=== PATIENT | female | born 1955 | race African-American/Black ===

== ENCOUNTER 2022-05-01 09:31 | Inpatient (IN) ==
[2022-05-01] MEDS ORDERED: TUSSIONEX PENNKINETIC SUSP PO PRN (09:35)
[2022-05-01 12:09] LABS: BASOPHILS # (AUTO) 0.1 X10^3/uL (0.0-0.1); BASOPHILS % (AUTO) 0.8 % (0.2-1.0); EOSINOPHILS # (AUTO) 0.4 x10^3/uL (0.0-0.2); EOSINOPHILS % (AUTO) 4.1 % (0.9-2.9); HEMATOCRIT 45.6 % (36.0-47.0); HEMOGLOBIN 15.1 g/dL (12.0-16.0); LYMPHOCYTES # (AUTO) 2.6 X10^3/uL (1.3-2.9); LYMPHOCYTES % (AUTO) 30.2 % (21.0-51.0); MEAN CORPUSCULAR HEMOGLOBIN 29.1 pg (27.0-34.0); MEAN CORPUSCULAR HGB CONC 33.1 g/dL (33.0-35.0); MEAN CORPUSCULAR VOLUME 88.1 fL (80.0-100.0); MEAN PLATELET VOLUME 7.2 fL (7.4-11.0); MONOCYTES # (AUTO) 0.9 x10^3/uL (0.3-0.8); MONOCYTES % (AUTO) 10.7 % (0.0-13.0); NEUTROPHILS # (AUTO) 4.6 x10^3/uL (2.2-4.8); NEUTROPHILS % (AUTO) 54.2 % (42.0-75.0); RED BLOOD COUNT 5.17 X10^6/uL (3.5-5.4); WHITE BLOOD COUNT 8.6 X10^3/uL (3.6-10.0)
[2022-05-01 12:20] LABS: ALANINE AMINOTRANSFERASE 12 Units/L (12-78); ALBUMIN 2.8 g/dL (3.4-5.0); ALKALINE PHOSPHATASE 87 Units/L (46-116); ASPARTATE AMINO TRANSFERASE 19 Units/L (15-37); BLOOD UREA NITROGEN 17 mg/dL (7-18); CALCIUM 8.2 mg/dL (8.5-10.1); CARBON DIOXIDE 32.6 mmol/L (21-32); CHLORIDE 105 mmol/L (98-107); COR CA(FOR HYPOALB) 9.2 mg/dL (8.5-10.1); CREATININE 0.92 mg/dL (0.55-1.02); SODIUM 143 mmol/L (136-145); TOTAL PROTEIN 7.6 g/dL (6.4-8.2); eGFR NON BLACK RACES > 60 (>60)
[2022-05-01] MEDS ORDERED: NS 1/2 1,000 ML IV 1,000 ML IV ONE (12:41)
[2022-05-01] MEDS: ROBITUSSIN DM PO SCH ×4 (12:48→21:53)
[2022-05-01] MEDS: NS 1/2 1,000 ML IV 1,000 ML IV SCH (12:48)
[2022-05-01 12:57] VITALS: BMI 36.9
[2022-05-01] MEDS ORDERED: SOLU-Medrol 125 MG VIAL IVP ONE (13:22)
[2022-05-01] MEDS: DUONEB 0.5 MG/3 MG (3 mL) NEB SCH ×3 (13:30→21:00)
[2022-05-01] MEDS: TAMIFLU PO SCH ×2 (13:48→21:51)
[2022-05-01] MEDS: LEVAQUIN PREMIX IV 750 MG 750 MG/150 ML BAG IV SCH (13:48)
[2022-05-01] MEDS: SOLU-Medrol 40 MG VIAL IVP SCH ×2 (13:51→21:52)
[2022-05-01] MEDS: PULMICORT NEB TX 0.5 MG NEB SCH (21:00)
[2022-05-01] MEDS ORDERED: PATIENT'S HOME MEDICATION (Oxycodone-Acetaminophen 10-325 mg tablet) PO PRN (21:20)
[2022-05-01] MEDS ORDERED: VOLTAREN 1 % GEL MULTI DOSE TUBE TOP PRN (21:20)
[2022-05-01] MEDS ORDERED: PATIENT'S HOME MEDICATION (Meloxicam 7.5 mg tablet) PO SCH (21:30)
[2022-05-01] MEDS: ZANAFLEX PO SCH (21:49)
[2022-05-01] MEDS: NEURONTIN CAP 100 MG PO SCH (21:49)
[2022-05-01] MEDS: ZESTORETIC 10/ 12.5MG PO SCH (21:51)
[2022-05-01] MEDS: PEPCID TAB 20 MG PO SCH (22:47)
[2022-05-01] MEDS ORDERED: K-DUR TAB 20 MEQ PO PRN (23:41)
[2022-05-01] MEDS ORDERED: KLOR-CON PO PRN (23:41)
[2022-05-01] MEDS ORDERED: K-RIDER 10 MEQ/NS 100 ML 10 MEQ/100 ML BAG IV PRN (23:41)
[2022-05-01] MEDS ORDERED: MICRO K EXTEN CAP 10 MEQ PO PRN (23:41)
[2022-05-01] MEDS ORDERED: MAGNESIUM SULFATE 1 GRAM/100 mL PREMIX 1 G/100 ML BAG IV PRN (23:41)
[2022-05-01] MEDS ORDERED: POTASSIUM CHLORIDE LIQ 20 MEQ UDC PO PRN (23:41)
[2022-05-01] MEDS ORDERED: POTASSIUM CHL 60 MEQ/NS 0.45% 500 ML IV PRN (23:41)
[2022-05-01] MEDS ORDERED: POTASSIUM CHL 40 MEQ/NS 0.45% 500 ML IV PRN (23:41)
[2022-05-02] MEDS: NS 1/2 1,000 ML IV 1,000 ML IV SCH ×3 (00:01→21:20)
[2022-05-02] MEDS ORDERED: NS 1/2 1,000 ML IV 1,000 ML IV ONE ×2 (04:26→21:11)
[2022-05-02] MEDS: NEURONTIN CAP 100 MG PO SCH ×3 (05:34→21:19)
[2022-05-02] MEDS: SOLU-Medrol 40 MG VIAL IVP SCH ×4 (05:35→21:20)
[2022-05-02 06:48] LABS: BASOPHILS % (AUTO) 0.1 % (0.2-1.0); HEMATOCRIT 43.2 % (36.0-47.0); HEMOGLOBIN 14.3 g/dL (12.0-16.0); LYMPHOCYTES # (AUTO) 1.2 X10^3/uL (1.3-2.9); LYMPHOCYTES % (AUTO) 11.8 % (21.0-51.0); MEAN CORPUSCULAR HEMOGLOBIN 29.1 pg (27.0-34.0); MEAN PLATELET VOLUME 7.5 fL (7.4-11.0); MONOCYTES # (AUTO) 0.3 x10^3/uL (0.3-0.8); MONOCYTES % (AUTO) 2.5 % (0.0-13.0); NEUTROPHILS # (AUTO) 8.9 x10^3/uL (2.2-4.8); NEUTROPHILS % (AUTO) 85.6 % (42.0-75.0); RED BLOOD COUNT 4.91 X10^6/uL (3.5-5.4); RED CELL DISTRIBUTION WIDTH 14.7 % (11.6-16.5); WHITE BLOOD COUNT 10.4 X10^3/uL (3.6-10.0)
[2022-05-02 07:07] LABS: ALANINE AMINOTRANSFERASE 10 Units/L (12-78); ALBUMIN 2.6 g/dL (3.4-5.0); ALKALINE PHOSPHATASE 82 Units/L (46-116); ASPARTATE AMINO TRANSFERASE 17 Units/L (15-37); BLOOD UREA NITROGEN 12 mg/dL (7-18); CALCIUM 8.1 mg/dL (8.5-10.1); CARBON DIOXIDE 26.7 mmol/L (21-32); CHLORIDE 105 mmol/L (98-107); COR CA(FOR HYPOALB) 9.2 mg/dL (8.5-10.1); COR NA(FOR HYPERGLY) 140 mmol/L (136-145); CREATININE 0.82 mg/dL (0.55-1.02); MAGNESIUM 2.2 mg/dL (2.0-2.9); SODIUM 138 mmol/L (136-145); TOTAL PROTEIN 7.2 g/dL (6.4-8.2); eGFR NON BLACK RACES > 60 (>60)
--- NOTE | 2022-05-02 07:53 | RAD ---
HISTORYPNEUMONIA Relevant Clinical InformationSTUDYCHEST, PA/LAT ADULTCOMPARISONNone availableFINDINGSThe trachea is midline. There is mild cardiomegaly. There is no evidence of pleural effusion or pneumothorax. There are small ground-glass radiopacities and interstitial changes in the left base projecting in the retro cardial region that it could correspond with viral pneumonia. Osseus structures are unremarkableIMPRESSIONGround-glass and interstitial changes in the left base suspicious for viral pneumonia.Electronically signed by: Dinora Barragan (May 02, 2022 07:51:50)
[2022-05-02] MEDS ORDERED: PERCOCET TAB 5/325 MG PO PRN (08:00)
[2022-05-02] MEDS: DUONEB 0.5 MG/3 MG (3 mL) NEB SCH ×4 (08:25→21:00)
[2022-05-02] MEDS: PULMICORT NEB TX 0.5 MG NEB SCH ×2 (08:25→21:00)
--- NOTE | 2022-05-02 09:19 | RAD ---
HISTORYSOBSTUDYCHEST, 1 [id number]/15/2022FINDINGSThe lungs are clear. No pneumothorax or significant effusion.Heart size magnified.Degenerative changes are present in the shoulders, right side more than left.IMPRESSION1. No significant abnormalityElectronically signed by: Jomar Weiss (May 02, 2022 09:17:24)
[2022-05-02] MEDS: ROBITUSSIN DM PO SCH ×4 (09:37→20:46)
[2022-05-02] MEDS: ZESTORETIC 10/ 12.5MG PO SCH (09:37)
[2022-05-02] MEDS: LEVAQUIN PREMIX IV 750 MG 750 MG/150 ML BAG IV SCH (09:37)
[2022-05-02] MEDS: PEPCID TAB 20 MG PO SCH ×2 (09:37→20:48)
[2022-05-02] MEDS: TAMIFLU PO SCH ×2 (09:37→20:48)
[2022-05-02] MEDS: MOBIC TAB 15 MG PO SCH ×2 (09:38→20:49)
[2022-05-02] MEDS: ZANAFLEX PO SCH (20:48)
[2022-05-02] MEDS: LIPITOR TAB 20 MG PO SCH (20:49)
[2022-05-03] MEDS: NS 1/2 1,000 ML IV 1,000 ML IV SCH ×3 (03:49→17:05)
[2022-05-03] MEDS: NEURONTIN CAP 100 MG PO SCH ×4 (05:20→21:10)
[2022-05-03] MEDS: SOLU-Medrol 40 MG VIAL IVP SCH ×3 (05:21→21:12)
[2022-05-03 06:52] LABS: BASOPHILS % (AUTO) 0.2 % (0.2-1.0); HEMATOCRIT 42.2 % (36.0-47.0); LYMPHOCYTES # (AUTO) 1.4 X10^3/uL (1.3-2.9); LYMPHOCYTES % (AUTO) 9.9 % (21.0-51.0); MEAN CORPUSCULAR HGB CONC 33.1 g/dL (33.0-35.0); MEAN CORPUSCULAR VOLUME 87.4 fL (80.0-100.0); MEAN PLATELET VOLUME 7.5 fL (7.4-11.0); MONOCYTES # (AUTO) 0.7 x10^3/uL (0.3-0.8); MONOCYTES % (AUTO) 5.1 % (0.0-13.0); NEUTROPHILS % (AUTO) 84.8 % (42.0-75.0); RED BLOOD COUNT 4.83 X10^6/uL (3.5-5.4); WHITE BLOOD COUNT 14.1 X10^3/uL (3.6-10.0)
[2022-05-03 07:03] LABS: ALANINE AMINOTRANSFERASE 8 Units/L (12-78); ALBUMIN 2.5 g/dL (3.4-5.0); ALKALINE PHOSPHATASE 75 Units/L (46-116); ASPARTATE AMINO TRANSFERASE 11 Units/L (15-37); BLOOD UREA NITROGEN 16 mg/dL (7-18); CALCIUM 7.8 mg/dL (8.5-10.1); CARBON DIOXIDE 30.9 mmol/L (21-32); CHLORIDE 102 mmol/L (98-107); COR NA(FOR HYPERGLY) 140 mmol/L (136-145); CREATININE 0.96 mg/dL (0.55-1.02); SODIUM 137 mmol/L (136-145); TOTAL PROTEIN 6.8 g/dL (6.4-8.2); eGFR NON BLACK RACES > 60 (>60)
[2022-05-03] MEDS: LEVAQUIN PREMIX IV 750 MG 750 MG/150 ML BAG IV SCH (08:11)
[2022-05-03] MEDS: ZESTORETIC 10/ 12.5MG PO SCH (08:13)
[2022-05-03] MEDS: TAMIFLU PO SCH ×2 (08:13→21:10)
[2022-05-03] MEDS: ROBITUSSIN DM PO SCH ×4 (08:13→21:12)
[2022-05-03] MEDS: PEPCID TAB 20 MG PO SCH ×2 (08:13→21:10)
[2022-05-03] MEDS: MOBIC TAB 15 MG PO SCH ×2 (08:13→21:10)
[2022-05-03] MEDS: DUONEB 0.5 MG/3 MG (3 mL) NEB SCH ×4 (08:41→21:00)
[2022-05-03] MEDS: PULMICORT NEB TX 0.5 MG NEB SCH ×2 (08:42→21:00)
--- NOTE | 2022-05-03 09:27 | RAD ---
HISTORYSOBSTUDYAP chestCOMPARISONDecember 2021FINDINGSStable heart size with no evidence for developing pulmonary, hilar or pleural abnormality. There is no evidence for localized pneumonia or pulmonary edema.IMPRESSIONNo change or acute findings demonstrated.Electronically signed by: CHIQUI EUBANKS (May 03, 2022 09:26:02)
--- NOTE | 2022-05-03 09:41 | DR.UPDATE ---
H&P Update Prescription drug monitoring program results: PDMP reviewed and no concerns identified H&P Reviewed: Yes Any changes to H&P?: Yes Changes noted:: IS A 66 YEAR OLD PATIENT OF OURS. SHE PRESENTED TO THE HOSPITAL A DIRECT ADMISSION, OBSERVATION STATUS, FOR TREATMENT OF INFLUENZA A AND BRONCHOPNEUMONIA. PATIENT REPORTEDLY TESTED POSITIVE FOR INFLUENZA A ON 04/29/22. SHE WAS GIVEN TAMIFLU 75MG PO BID. PATIENT REPORTS THAT HER SYMTPOMS OF COUGH, SHORTNESS OF BREATH, AND WHEEZING WORSENED DESPITE TAKING THE TAMIFLU. ON ADMISSION TO THE HOSPITAL, VITALS WERE 99.0-76-20-92%-121/63. LABS WERE OBTAINED. WBC 8.6, RBC 5.17, HGB 15.1, HCT 45.6, PLT COUNT 266, SODIUM 143, POTASSIUM 3.5, CHLORIDE 105, CARBON DIOXIDE 32.6, BUN 17, CREATININE 0.92, GLUCOSE 97, CALCIUM 8.2, AST 19, ALT 12, ALK PHOS 87, TOTAL PROTEIN 7.6, ALBUMIN 2.8. RESPIRATORY VIRAL PANEL, BLOOD CULTURES, AND SPUTUM CULTURES WERE SET UP. A CHEST XRAY WAS OBTAINED AND REVEALED: Ground-glass and interstitial changes in the left base suspicious for viral pneumonia. SHE WAS STARTED ON NORMAL SALINE AT 75 ML/HR, LEVAQUIN 750MG IV DAILY, TAMIFLU 75MG PO BID, DUONEBS QID, PULMICORT NEBS BID, TUSSIONEX 5ML PO Q12H PRN, ROBITUSSIN DM 10ML PO QID, THE POTASSIUM AND MAGNESIUM PROTOCOLS, AND HER HOME MEDICATIONS WERE RESUMED. OTHERWISE, WE WILL FOLLOW-UP WITH AM LABS AND CONTINUE TO MONITOR. TIME SPENT ON CLINICAL ASSESSMENT, REVIWING LABS AND IMAGING, DECISION MAKING, AND DOCUMENTATION GREATER THAN 75 MINUTES. Patient was examined?: Yes
--- NOTE | 2022-05-03 10:15 | PCM.PROG ---
Progress Note - Progress Note for Day of Date of Exam: 05/03/22 - Subjective Subjective: IS CURRENTLY OBSERVATION STATUS FOR TREATMENT OF BRONCHOPNEUMONIA AND INFLUENZA A. TODAY, SHE IS ALERT AND ORIENTED, LYING IN BED ON MORNING ROUNDS. SHE CONTINUES WITH COMPLAINTS OF A NON-PRODUCTIVE COUGH, SHORTNESS OF BREATH, AND WHEEZING. ON EXAMINATION, HEART IS REGULAR IN RATE AND RHYTHM. BILATERAL LUNGS ARE NOTED WITH SCATTERED WHEEZING THROUGHOUT. ABDOMEN IS ROUND, SOFT, AND NON-TENDER WITH NORMAL BOWEL SOUNDS NOTED IN ALL QUADRANTS. NO UPPER OR LOWER EXTREMITY EDEMA NOTED. HER VITALS THIS MORNING ARE: 98.1-79-20-96%-122/71. LABS WERE OBTAINED. WBC 14.1, RBC 4.83, HGB 14.0, HCT 42.2, PLT COUNT 247, SODIUM 137, POTASSIUM 4.0, CHLORIDE 102, CARBON DIOXIDE 30.9, BUN 16, CREATININE 0.96, GLUCOSE 220, CALCIUM 7.8, TOTAL BILI 0.10, AST 11, ALT 8, ALK PHOS 75, TOTAL PROTEIN 6.8, ALBUMIN 2.5. RESPIRATORY VIRAL PANEL IS PENDING. BLOOD CULTURES ARE ALSO PENDING. CHEST XRAY OBTAINED THIS MORNING AND REVEALED: Stable heart size with no evidence for developing pulmonary, hilar or pleural abnormality. There is no evidence for localized pneumonia or pulmonary edema. SHE IS CURRENTLY RECEIVING NORMAL SALINE AT 75 ML/HR, LEVAQUIN 750MG IV DAILY, TAMIFLU 75MG PO BID, DUONEBS QID, PULMICORT NEBS BID, TUSSIONEX 5ML PO Q12H PRN, ROBITUSSIN DM 10ML PO QID, THE POTASSIUM AND MAG NESIUM PROTOCOLS, AND HER HOME MEDICATIONS WERE RESUMED. WE WILL CONTINUE WITH CURRENT PLAN OF CARE TODAY. OTHERWISE, WE PLAN TO FOLLOW-UP WITH AM LABS AND CONTINUE TO MONITOR. TIME SPENT ON CLINICAL ASSESSMENT, REVIWING LABS AND IMAGING, DECISION MAKING, AND DOCUMENTATION GREATER THAN 45 MINUTES. - Past Medical Family Social History Past Med/Fam/Surg Hx: No changes since H&P Allergies: Allergies azithromycin [From Zithromax] Allergy (Verified 05/01/22 13:21) ceftriaxone [From Rocephin] Allergy (Verified 05/01/22 12:01) shrimp Allergy (Verified 05/01/22 12:01) - Review of Systems ROS: No change since H&P - Vital Signs and I&O's Vital Signs: Temperature 98.1 F Pulse Rate [Left Radial] 79 Pulse Rate 82 Respiratory Rate 20 Blood Pressure [Left Arm] 122/71 O2 Sat by Pulse Oximetry 95 Intake and Output: Intake & Output 04/30/22 05/01/22 05/02/22 05/03/22 11:59 11:59 11:59 11:59 Intake Total 2028 3530 / 3530 Balance 2028 3530 / 3530 - Physical Exam Oriented: Normal Eyes: Normal Ear: Normal Nose: Normal Throat: Normal Respiratory: Generalized, Wheezes Cardiovascular: Normal : Normal Auscultation: Bowel Sounds: Normal Palpation: Normal Tenderness: Normal Skin: Normal Musculoskeletal: Normal Psychiatric: Normal Mood Description: Calm Affect: Normal Speech Pattern: Clear, Appropriate - Laboratory and Diagnostics Result Diagrams: 05/03/22 05:54 05/03/22 05:54 Labs: 05/01/22 13:16 Sputum - Expectorated Sputum Sputum Culture - Final 05/01/22 13:16 Sputum - Expectorated Sputum - Final Laboratory WBC 14.1 X10^3/uL (3.6-10.0) H 05/03/22 05:54 RBC 4.83 X10^6/uL (3.5-5.4) 05/03/22 05:54 Hgb 14.0 g/dL (12.0-16.0) 05/03/22 05:54 Hct 42.2 % (36.0-47.0) 05/03/22 05:54 MCV 87.4 fL (80.0-100.0) 05/03/22 05:54 MCH 29.0 pg (27.0-34.0) 05/03/22 05:54 MCHC 33.1 g/dL (33.0-35.0) 05/03/22 05:54 RDW 15.0 % (11.6-16.5) 05/03/22 05:54 Plt Count 247 X10^3/uL (150.0-450.0) 05/03/22 05:54 MPV 7.5 fL (7.4-11.0) 05/03/22 05:54 Neut % (Auto) 84.8 % (42.0-75.0) H 05/03/22 05:54 Lymph % (Auto) 9.9 % (21.0-51.0) L 05/03/22 05:54 [place] % (Auto) 5.1 % (0.0-13.0) 05/03/22 05:54 Eos % (Auto) 0.0 % (0.9-2.9) L 05/03/22 05:54 Baso % (Auto) 0.2 % (0.2-1.0) 05/03/22 05:54 Neut # (Auto) 12.0 x10^3/uL (2.2-4.8) H 05/03/22 05:54 Lymph # (Auto) 1.4 X10^3/uL (1.3-2.9) 05/03/22 05:54 [place] # (Auto) 0.7 x10^3/uL (0.3-0.8) 05/03/22 05:54 Eos # (Auto) 0.0 x10^3/uL (0.0-0.2) 05/03/22 05:54 Baso # (Auto) 0.0 X10^3/uL (0.0-0.1) 05/03/22 05:54 Absolute Nucleated RBC 0.0 /100WBC 05/03/22 05:54 Sodium 137 mmol/L (136-145) 05/03/22 05:54 Corrected Sodium 140 mmol/L (136-145) 05/03/22 05:54 Potassium 4.0 mmol/L (3.5-5.1) 05/03/22 05:54 Chloride 102 mmol/L (98-107) 05/03/22 05:54 Carbon Dioxide 30.9 mmol/L (21-32) 05/03/22 05:54 BUN 16 mg/dL (7-18) 05/03/22 05:54 Creatinine 0.96 mg/dL (0.55-1.02) 05/03/22 05:54 Est GFR (MDRD) Af Amer > 60 (>60) 05/03/22 05:54 Est GFR (MDRD) Non-Af > 60 (>60) 05/03/22 05:54 Glucose 220 mg/dL (65-99) H 05/03/22 05:54 Calcium 7.8 mg/dL (8.5-10.1) L 05/03/22 05:54 Corrected Calcium 9.0 mg/dL (8.5-10.1) 05/03/22 05:54 Magnesium 2.2 mg/dL (2.0-2.9) 05/02/22 06:00 Total Bilirubin 0.10 mg/dL (0.2-1.0) L 05/03/22 05:54 AST 11 Units/L (15-37) L 05/03/22 05:54 ALT 8 Units/L (12-78) L 05/03/22 05:54 Alkaline Phosphatase 75 Units/L (46-116) 05/03/22 05:54 Total Protein 6.8 g/dL (6.4-8.2) 05/03/22 05:54 Albumin 2.5 g/dL (3.4-5.0) L 05/03/22 05:54 Globulin 4.3 g/dL (2.5-4.5) 05/03/22 05:54 Albumin/Globulin Ratio 0.6 Ratio (1.1-2.1) L 05/03/22 05:54 - Plan (1) Bronchopneumonia Status: Acute Plan: ADMIT, NORMAL SALINE AT 75 ML/HR, LEVAQUIN 750MG IV DAILY, TAMIFLU 75MG PO BID, DUONEBS QID, PULMICORT NEBS BID, TUSSIONEX 5ML PO Q12H PRN, ROBITUSSIN DM 10ML PO QID, THE POTASSIUM AND MAGNESIUM PROTOCOLS, AND HER HOME MEDICATIONS WERE RESUMED. (2) Influenza A Status: Acute (3) HTN (hypertension) Status: Chronic Qualifiers: Hypertension type: primary hypertension Qualified Code(s): I10 - Essential (primary) hypertension (4) Hyperlipidemia Status: Chronic Qualifiers: Hyperlipidemia type: mixed hyperlipidemia Qualified Code(s): E78.2 - Mixed hyperlipidemia
[2022-05-03] MEDS ORDERED: NS 1/2 1,000 ML IV 1,000 ML IV ONE (11:46)
[2022-05-03] MEDS: ZANAFLEX PO SCH (21:10)
[2022-05-03] MEDS: KLONOPIN TAB 0.5 MG PO SCH (21:11)
[2022-05-03] MEDS: LIPITOR TAB 20 MG PO SCH (21:11)
[2022-05-04] MEDS ORDERED: NS 1/2 1,000 ML IV 1,000 ML IV ONE ×2 (01:17→17:13)
[2022-05-04] MEDS: NS 1/2 1,000 ML IV 1,000 ML IV SCH ×4 (01:19→22:49)
[2022-05-04] MEDS: NEURONTIN CAP 100 MG PO SCH ×3 (05:08→21:25)
[2022-05-04] MEDS: SOLU-Medrol 40 MG VIAL IVP SCH ×3 (05:08→21:26)
[2022-05-04 06:15] LABS: BASOPHILS % (AUTO) 0.2 % (0.2-1.0); LYMPHOCYTES # (AUTO) 1.1 X10^3/uL (1.3-2.9); LYMPHOCYTES % (AUTO) 9.6 % (21.0-51.0); MEAN CORPUSCULAR HEMOGLOBIN 28.6 pg (27.0-34.0); MEAN CORPUSCULAR HGB CONC 32.6 g/dL (33.0-35.0); MEAN CORPUSCULAR VOLUME 87.5 fL (80.0-100.0); MEAN PLATELET VOLUME 7.6 fL (7.4-11.0); MONOCYTES # (AUTO) 0.6 x10^3/uL (0.3-0.8); MONOCYTES % (AUTO) 5.1 % (0.0-13.0); NEUTROPHILS # (AUTO) 10.1 x10^3/uL (2.2-4.8); NEUTROPHILS % (AUTO) 85.1 % (42.0-75.0); RED BLOOD COUNT 4.91 X10^6/uL (3.5-5.4); RED CELL DISTRIBUTION WIDTH 14.8 % (11.6-16.5); WHITE BLOOD COUNT 11.9 X10^3/uL (3.6-10.0)
[2022-05-04 06:23] LABS: ALANINE AMINOTRANSFERASE 9 Units/L (12-78); ALBUMIN 2.4 g/dL (3.4-5.0); ALKALINE PHOSPHATASE 74 Units/L (46-116); ASPARTATE AMINO TRANSFERASE 10 Units/L (15-37); BLOOD UREA NITROGEN 18 mg/dL (7-18); CALCIUM 7.4 mg/dL (8.5-10.1); CHLORIDE 102 mmol/L (98-107); COR CA(FOR HYPOALB) 8.7 mg/dL (8.5-10.1); COR NA(FOR HYPERGLY) 143 mmol/L (136-145); CREATININE 1.04 mg/dL (0.55-1.02); SODIUM 138 mmol/L (136-145); TOTAL PROTEIN 6.6 g/dL (6.4-8.2); eGFR NON BLACK RACES 56 (>60)
--- NOTE | 2022-05-04 07:12 | RAD ---
HISTORYSOB HX: HTN, CVA SX: GB, HYSTERECTOMYSTUDYCHEST, 1 [id number]/17/2022, 05/02/2022, 05/01/2022FINDINGSCardiomediastinal silhouette within normal limits. Hazy bibasilar opacities have developed since 05/01/2022 and could reflect atelectasis, edema, or infection. No sizable pleural effusion or visible pneumothorax.IMPRESSIONDeveloping bibasilar opacities.Electronically signed by: Gildardo Thompson (May 04, 2022 07:10:26)
[2022-05-04] MEDS: DUONEB 0.5 MG/3 MG (3 mL) NEB SCH ×4 (09:02→21:00)
[2022-05-04] MEDS: PULMICORT NEB TX 0.5 MG NEB SCH ×2 (09:02→21:00)
[2022-05-04] MEDS: TAMIFLU PO SCH ×2 (09:23→21:25)
[2022-05-04] MEDS: LEVAQUIN PREMIX IV 750 MG 750 MG/150 ML BAG IV SCH (09:23)
[2022-05-04] MEDS: PEPCID TAB 20 MG PO SCH ×2 (09:23→21:25)
[2022-05-04] MEDS: MOBIC TAB 15 MG PO SCH ×2 (09:24→21:25)
[2022-05-04] MEDS: ZESTORETIC 10/ 12.5MG PO SCH (09:24)
[2022-05-04] MEDS: ROBITUSSIN DM PO SCH ×4 (09:24→21:25)
[2022-05-04] MEDS: LIPITOR TAB 20 MG PO SCH (21:25)
[2022-05-04] MEDS: ZANAFLEX PO SCH (21:25)
[2022-05-04] MEDS: KLONOPIN TAB 0.5 MG PO SCH (21:25)
[2022-05-05] MEDS: NEURONTIN CAP 100 MG PO SCH ×4 (05:37→21:04)
[2022-05-05] MEDS: SOLU-Medrol 40 MG VIAL IVP SCH ×3 (05:38→21:00)
[2022-05-05] MEDS: NS 1/2 1,000 ML IV 1,000 ML IV SCH ×2 (05:38→21:09)
[2022-05-05] MEDS ORDERED: NS 1/2 1,000 ML IV 1,000 ML IV ONE ×2 (05:43→20:26)
[2022-05-05 06:51] LABS: ALANINE AMINOTRANSFERASE 10 Units/L (12-78); ALBUMIN 2.5 g/dL (3.4-5.0); ALKALINE PHOSPHATASE 78 Units/L (46-116); ASPARTATE AMINO TRANSFERASE < 6 Units/L (15-37); BLOOD UREA NITROGEN 21 mg/dL (7-18); CALCIUM 7.6 mg/dL (8.5-10.1); CARBON DIOXIDE 28.5 mmol/L (21-32); CHLORIDE 102 mmol/L (98-107); COR CA(FOR HYPOALB) 8.8 mg/dL (8.5-10.1); COR NA(FOR HYPERGLY) 144 mmol/L (136-145); CREATININE 1.16 mg/dL (0.55-1.02); SODIUM 139 mmol/L (136-145); TOTAL PROTEIN 6.8 g/dL (6.4-8.2); eGFR NON BLACK RACES 50 (>60)
[2022-05-05 06:52] LABS: BASOPHILS % (AUTO) 0.2 % (0.2-1.0); HEMATOCRIT 44.7 % (36.0-47.0); HEMOGLOBIN 14.7 g/dL (12.0-16.0); LYMPHOCYTES # (AUTO) 1.1 X10^3/uL (1.3-2.9); LYMPHOCYTES % (AUTO) 9.8 % (21.0-51.0); MEAN CORPUSCULAR HEMOGLOBIN 28.8 pg (27.0-34.0); MEAN CORPUSCULAR HGB CONC 32.9 g/dL (33.0-35.0); MEAN CORPUSCULAR VOLUME 87.7 fL (80.0-100.0); MEAN PLATELET VOLUME 7.4 fL (7.4-11.0); MONOCYTES # (AUTO) 0.7 x10^3/uL (0.3-0.8); MONOCYTES % (AUTO) 6.3 % (0.0-13.0); NEUTROPHILS # (AUTO) 9.8 x10^3/uL (2.2-4.8); NEUTROPHILS % (AUTO) 83.7 % (42.0-75.0); RED CELL DISTRIBUTION WIDTH 14.8 % (11.6-16.5); WHITE BLOOD COUNT 11.7 X10^3/uL (3.6-10.0)
--- NOTE | 2022-05-05 07:15 | RAD ---
HISTORYBRONCHOPNEUMONIA; SOB Relevant Clinical InformationSTUDYCHEST, 1 [id number]/18/2022FINDINGSThe trachea is midline. The cardiac silhouette is unremarkable. Mild bibasilar opacities unchanged. The bony thorax is unremarkable.IMPRESSIONStable portable chest.Electronically signed by: Hola Asher (May 05, 2022 07:14:32)
[2022-05-05 07:33] LABS: MYELOCYTES % 2
[2022-05-05 07:34] LABS: PLATELET MORPHOLOGY COMMENT NORMAL (NORMAL)
[2022-05-05] MEDS: DUONEB 0.5 MG/3 MG (3 mL) NEB SCH ×4 (08:54→21:10)
[2022-05-05] MEDS: PULMICORT NEB TX 0.5 MG NEB SCH ×2 (08:54→21:10)
[2022-05-05] MEDS: MOBIC TAB 15 MG PO SCH ×2 (09:26→21:01)
[2022-05-05] MEDS: LEVAQUIN PREMIX IV 750 MG 750 MG/150 ML BAG IV SCH (09:26)
[2022-05-05] MEDS: ROBITUSSIN DM PO SCH ×4 (09:27→21:01)
[2022-05-05] MEDS: TAMIFLU PO SCH ×2 (09:27→21:01)
[2022-05-05] MEDS: ZESTORETIC 10/ 12.5MG PO SCH (09:27)
[2022-05-05] MEDS: PEPCID TAB 20 MG PO SCH (09:30)
[2022-05-05] MEDS: ZANAFLEX PO SCH (21:00)
[2022-05-05] MEDS: LIPITOR TAB 20 MG PO SCH (21:01)
[2022-05-05] MEDS: KLONOPIN TAB 0.5 MG PO SCH (21:01)
--- NOTE | 2022-05-05 21:30 | PCM.PROG ---
Progress Note - Progress Note for Day of Date of Exam: 05/04/22 - Subjective Subjective: IS CURRENTLY OBSERVATION STATUS FOR TREATMENT OF BRONCHOPNEUMONIA AND INFLUENZA A. TODAY, SHE IS ALERT AND ORIENTED, LYING IN BED ON MORNING ROUNDS. SHE CONTINUES WITH COMPLAINTS OF A NON-PRODUCTIVE COUGH, SHORTNESS OF BREATH, AND WHEEZING. NURSING STAFF REPORTS THAT ON ROOM AIR, PAT IENTS OXYGEN SATURATIONS DROP TO THE 80s. WHEN PLACED BACK ON NASAL CANNULA, SATURATIONS INCREASE TO THE 90s. SHE DOES HAVE A HISTORY OF COPD. ON EXAMINATION, HEART IS REGULAR IN RATE AND RHYTHM. BILATERAL LUNGS ARE NOTED WITH SCATTERED WHEEZING THROUGHOUT. ABDOMEN IS ROUND, SOFT, AND NON-TENDER WITH NORMAL BOWEL SOUNDS NOTED IN ALL QUADRANTS. NO UPPER OR LOWER EXTREMITY EDEMA NOTED. HER VITALS THIS MORNING ARE: 98.4-62-22-97%-122/78. LABS WERE OBTAINED. WBC 11.9, RBC 4.91, HGB 14.0, HCT 43.0, PLT COUNT 247, SODIUM 138, POTASSIUM 3.8, CHLORIDE 102, BUN 18, CREATININE 1.04, GLUCOSE 301, CALCIUM 7.4, AST 10, ALT 9, ALK PHOS 74, TOTAL PROTEIN 6.6, ALBUMIN 2.4. RESPIRATORY VIRAL PANEL IS PENDING. BLOOD AND SPUTUM CULTURES ARE ALSO PENDING. CHEST XRAY OBTAINED THIS MORNING AND REVEALED: Cardiomediastinal silhouette within normal limits. Hazy bibasilar opacities have developed since 05/01/2022 and could reflect atelectasis, edema, or infection. No sizable pleural effusion or visible pneumo thorax. SHE IS CURRENTLY RECEIVING NORMAL SALINE AT 75 ML/HR, LEVAQUIN 750MG IV DAILY, TAMIFLU 75MG PO BID, DUONEBS QID, PULMICORT NEBS BID, TUSSIONEX 5ML PO Q12H PRN, ROBITUSSIN DM 10ML PO QID, THE POTASSIUM AND MAGNESIUM PROTOCOLS, AND HER HOME MEDICATIONS WERE RESUMED. WE WILL CONTINUE WITH CURRENT PLAN OF CARE TODAY. OTHERWISE, WE PLAN TO FOLLOW-UP WITH AM LABS AND CONTINUE TO MONITOR. TIME SPENT ON CLINICAL ASSESSMENT, REVIWING LABS AND IMAGING, DECISION MAKING, AND DOCUMENTATION GREATER THAN 45 MINUTES. - Past Medical Family Social History Past Med/Fam/Surg Hx: No changes since H&P Allergies: Allergies azithromycin [From Zithromax] Allergy (Verified 05/01/22 13:21) ceftriaxone [From Rocephin] Allergy (Verified 05/01/22 12:01) shrimp Allergy (Verified 05/01/22 12:01) - Review of Systems ROS: No change since H&P - Vital Signs and I&O's Vital Signs: Temperature 98.1 F Pulse Rate [Left Radial] 94 Pulse Rate 81 Respiratory Rate 18 Blood Pressure [Left Arm] 129/83 O2 Sat by Pulse Oximetry 97 Intake and Output: Intake & Output 05/03/22 05/04/22 05/05/22 05/06/22 11:59 11:59 11:59 11:59 Intake Total 3530 / 3530 3367 / 3367 2958 / 2958 840 / 840 Balance 3530 / 3530 3367 / 3367 2958 / 2958 840 / 840 - Physical Exam Oriented: Normal Eyes: Normal Ear: Normal Nose: Normal Throat: Normal Respiratory: Generalized, Wheezes Cardiovascular: Normal : Normal Auscultation: Bowel Sounds: Normal Palpation: Normal Tenderness: Normal Skin: Normal Musculoskeletal: Normal Psychiatric: Normal Mood Description: Calm Affect: Normal Speech Pattern: Clear, Appropriate - Laboratory and Diagnostics Result Diagrams: 05/05/22 06:06 05/05/22 06:06 Labs: 05/01/22 11:53 Blood Blood Culture - Preliminary 05/01/22 11:44 Blood Blood Culture - Preliminary 05/01/22 13:16 Sputum - Expectorated Sputum Sputum Culture - Final 05/01/22 13:16 Sputum - Expectorated Sputum - Final Laboratory WBC 11.7 X10^3/uL (3.6-10.0) H 05/05/22 06:06 RBC 5.10 X10^6/uL (3.5-5.4) 05/05/22 06:06 Hgb 14.7 g/dL (12.0-16.0) 05/05/22 06:06 Hct 44.7 % (36.0-47.0) 05/05/22 06:06 MCV 87.7 fL (80.0-100.0) 05/05/22 06:06 MCH 28.8 pg (27.0-34.0) 05/05/22 06:06 MCHC 32.9 g/dL (33.0-35.0) L 05/05/22 06:06 RDW 14.8 % (11.6-16.5) 05/05/22 06:06 Plt Count 233 X10^3/uL (150.0-450.0) 05/05/22 06:06 Plt Count Comment Adequate (ADEQUATE) 05/05/22 06:06 MPV 7.4 fL (7.4-11.0) 05/05/22 06:06 Neut % (Auto) 83.7 % (42.0-75.0) H 05/05/22 06:06 Lymph % (Auto) 9.8 % (21.0-51.0) L 05/05/22 06:06 [place] % (Auto) 6.3 % (0.0-13.0) 05/05/22 06:06 Eos % (Auto) 0.0 % (0.9-2.9) L 05/05/22 06:06 Baso % (Auto) 0.2 % (0.2-1.0) 05/05/22 06:06 Neut # (Auto) 9.8 x10^3/uL (2.2-4.8) H 05/05/22 06:06 Lymph # (Auto) 1.1 X10^3/uL (1.3-2.9) L 05/05/22 06:06 [place] # (Auto) 0.7 x10^3/uL (0.3-0.8) 05/05/22 06:06 Eos # (Auto) 0.0 x10^3/uL (0.0-0.2) 05/05/22 06:06 Baso # (Auto) 0.0 X10^3/uL (0.0-0.1) 05/05/22 06:06 Absolute Nucleated RBC 0.0 /100WBC 05/05/22 06:06 Total Counted 100 05/05/22 06:06 Neutrophils % (Manual) 85 % (39-76) H 05/05/22 06:06 Lymphocytes % (Manual) 12 % (13-43) L 05/05/22 06:06 Monocytes % (Manual) 1 % (4-9) L 05/05/22 06:06 Myelocytes % 2 05/05/22 06:06 Plt Morphology Comment Normal (NORMAL) 05/05/22 06:06 RBC Morphology Normal (NORMAL) 05/05/22 06:06 Sodium 139 mmol/L (136-145) 05/05/22 06:06 Corrected Sodium 144 mmol/L (136-145) 05/05/22 06:06 Potassium 3.9 mmol/L (3.5-5.1) 05/05/22 06:06 Chloride 102 mmol/L (98-107) 05/05/22 06:06 Carbon Dioxide 28.5 mmol/L (21-32) 05/05/22 06:06 BUN 21 mg/dL (7-18) H 05/05/22 06:06 Creatinine 1.16 mg/dL (0.55-1.02) H 05/05/22 06:06 Est GFR (MDRD) Af Amer 60 (>60) 05/05/22 06:06 Est GFR (MDRD) Non-Af 50 (>60) L 05/05/22 06:06 Glucose 314 mg/dL (65-99) H 05/05/22 06:06 POC Glucose (mg/dL) 388 mg/dL (65-99) H 05/05/22 20:19 Calcium 7.6 mg/dL (8.5-10.1) L 05/05/22 06:06 Corrected Calcium 8.8 mg/dL (8.5-10.1) 05/05/22 06:06 Magnesium 2.2 mg/dL (2.0-2.9) 05/02/22 06:00 Total Bilirubin 0.20 mg/dL (0.2-1.0) 05/05/22 06:06 AST < 6 Units/L (15-37) L 05/05/22 06:06 ALT 10 Units/L (12-78) L 05/05/22 06:06 Alkaline Phosphatase 78 Units/L (46-116) 05/05/22 06:06 Total Protein 6.8 g/dL (6.4-8.2) 05/05/22 06:06 Albumin 2.5 g/dL (3.4-5.0) L 05/05/22 06:06 Globulin 4.3 g/dL (2.5-4.5) 05/05/22 06:06 Albumin/Globulin Ratio 0.6 Ratio (1.1-2.1) L 05/05/22 06:06 Resp Viral Panel (PCR) See scanned report 05/01/22 16:10 - Plan (1) Bronchopneumonia Status: Acute Plan: NORMAL SALINE AT 75 ML/HR, LEVAQUIN 750MG IV DAILY, TAMIFLU 75MG PO BID, DUONEBS QID, PULMICORT NEBS BID, TUSSIONEX 5ML PO Q12H PRN, ROBITUSSIN DM 10ML PO QID, THE POTASSIUM AND MAGNESIUM PROTOCOLS, AND HER HOME MEDICATIONS WERE RESUMED. (2) Influenza A Status: Acute (3) Hypoxia Status: Acute (4) HTN (hypertension) Status: Chronic Qualifiers: Hypertension type: primary hypertension Qualified Code(s): I10 - Essential (primary) hypertension (5) Hyperlipidemia Status: Chronic Qualifiers: Hyperlipidemia type: mixed hyperlipidemia Qualified Code(s): E78.2 - Mixed hyperlipidemia (6) COPD (chronic obstructive pulmonary disease) Status: Acute Qualifiers: COPD type: unspecified COPD Qualified Code(s): J44.9 - Chronic obstructive pulmonary disease, unspecified
--- NOTE | 2022-05-05 21:40 | PCM.PROG ---
Progress Note - Progress Note for Day of Date of Exam: 05/05/22 - Subjective Subjective: IS CURRENTLY OBSERVATION STATUS FOR TREATMENT OF BRONCHOPNEUMONIA AND INFLUENZA A. TODAY, SHE IS ALERT AND ORIENTED, LYING IN BED ON MORNING ROUNDS. SHE CONTINUES WITH COMPLAINTS OF A NON-PRODUCTIVE COUGH, SHORTNESS OF BREATH, AND WHEEZING. SHE DOES REPORT SLIGHT IMPROVEMENT IN SYMPT OMS TODAY. NURSING STAFF REPORTS THAT ON ROOM AIR, PATIENTS OXYGEN SATURATIONS DROP TO THE 80s. WHEN PLACED BACK ON NASAL CANNULA, SATURATIONS INCREASE TO THE 90s. SHE DOES HAVE A HISTORY OF COPD. ON EXAMINATION, HEART IS REGULAR IN RATE AND RHYTHM. BILATERAL LUNGS ARE NOTED WITH SCATTERED WHEEZING THROUGHOUT. ABDOMEN IS ROUND, SOFT, AND NON-TENDER WITH NORMAL BOWEL SOUNDS NOTED IN ALL QUADRANTS. NO UPPER OR LOWER EXTREMITY EDEMA NOTED. HER VITALS THIS MORNING ARE: 97.9-93-20-95%-137/97. LABS WERE OBTAINED. WBC 11.7, RBC 5.10, HGB 14.7, HCT 44.7, PLT COUNT 233, SODIUM 139, POTASSIUM 3.9, BUN 21, CREATININE 1.16, GLUCOSE 314, CALCIUM 7.6, AST <6, ALT 10, ALK PHOS 78, TOTAL PROTEIN 6.8, ALBUMIN 2.5. RESPIRATORY VIRAL PANEL REVEALED STREPTOCOCCUS PNEUMONIAE AND RHINOVIRUS. BLOOD AND SPUTUM CULTURES ARE ALSO PENDING. CHEST XRAY OBTAINED THIS MORNING AND REVEALED: The trachea is midline. The cardiac silhouette is unremarkable. Mild bibasilar opacities unchanged. The bony thorax is unremarkable. SHE IS CURRENTLY RECEIVING NORMAL SALINE AT 75 ML/HR, LEVAQUIN 750MG IV DAILY, TAMIFLU 75MG PO BID, DUONEBS QID, PULMICORT NEBS BID, TUSSIONEX 5ML PO Q12H PRN, ROBITUSSIN DM 10ML PO QID, THE POTASSIUM AND MAGNESIUM PROTOCOLS, AND HER HOME MEDICATIONS WERE RESUMED. WE WILL CONTINUE WITH CURRENT PLAN OF CARE TODAY. OTHERWISE, WE PLAN TO FOLLOW-UP WITH AM LABS AND CONTINUE TO MONITOR. TIME SPENT ON CLINICAL ASSESSMENT, REVIWING LABS AND IMAGING, DECISION MAKING, AND DOCUMENTATION GREATER THAN 45 MINUTES. - Past Medical Family Social History Past Med/Fam/Surg Hx: No changes since H&P Allergies: Allergies azithromycin [From Zithromax] Allergy (Verified 05/01/22 13:21) ceftriaxone [From Rocephin] Allergy (Verified 05/01/22 12:01) shrimp Allergy (Verified 05/01/22 12:01) - Review of Systems ROS: No change since H&P - Vital Signs and I&O's Vital Signs: Temperature 98.1 F Pulse Rate [Left Radial] 94 Pulse Rate 81 Respiratory Rate 18 Blood Pressure [Left Arm] 129/83 O2 Sat by Pulse Oximetry 93 Intake and Output: Intake & Output 05/03/22 05/04/22 05/05/22 05/06/22 11:59 11:59 11:59 11:59 Intake Total 3530 / 3530 3367 / 3367 2958 / 2958 840 / 840 Balance 3530 / 3530 3367 / 3367 2958 / 2958 840 / 840 - Physical Exam Oriented: Normal Eyes: Normal Ear: Normal Nose: Normal Throat: Normal Respiratory: Generalized, Wheezes Cardiovascular: Normal : Normal Auscultation: Bowel Sounds: Normal Palpation: Normal Tenderness: Normal Skin: Normal Musculoskeletal: Normal Psychiatric: Normal Mood Description: Calm Affect: Normal Speech Pattern: Clear, Appropriate - Laboratory and Diagnostics Result Diagrams: 05/07/22 06:18 05/07/22 06:18 Labs: 05/01/22 11:53 Blood Blood Culture - Preliminary 05/01/22 11:44 Blood Blood Culture - Preliminary 05/01/22 13:16 Sputum - Expectorated Sputum Sputum Culture - Final 05/01/22 13:16 Sputum - Expectorated Sputum - Final Laboratory WBC 11.7 X10^3/uL (3.6-10.0) H 05/05/22 06:06 RBC 5.10 X10^6/uL (3.5-5.4) 05/05/22 06:06 Hgb 14.7 g/dL (12.0-16.0) 05/05/22 06:06 Hct 44.7 % (36.0-47.0) 05/05/22 06:06 MCV 87.7 fL (80.0-100.0) 05/05/22 06:06 MCH 28.8 pg (27.0-34.0) 05/05/22 06:06 MCHC 32.9 g/dL (33.0-35.0) L 05/05/22 06:06 RDW 14.8 % (11.6-16.5) 05/05/22 06:06 Plt Count 233 X10^3/uL (150.0-450.0) 05/05/22 06:06 Plt Count Comment Adequate (ADEQUATE) 05/05/22 06:06 MPV 7.4 fL (7.4-11.0) 05/05/22 06:06 Neut % (Auto) 83.7 % (42.0-75.0) H 05/05/22 06:06 Lymph % (Auto) 9.8 % (21.0-51.0) L 05/05/22 06:06 [place] % (Auto) 6.3 % (0.0-13.0) 05/05/22 06:06 Eos % (Auto) 0.0 % (0.9-2.9) L 05/05/22 06:06 Baso % (Auto) 0.2 % (0.2-1.0) 05/05/22 06:06 Neut # (Auto) 9.8 x10^3/uL (2.2-4.8) H 05/05/22 06:06 Lymph # (Auto) 1.1 X10^3/uL (1.3-2.9) L 05/05/22 06:06 [place] # (Auto) 0.7 x10^3/uL (0.3-0.8) 05/05/22 06:06 Eos # (Auto) 0.0 x10^3/uL (0.0-0.2) 05/05/22 06:06 Baso # (Auto) 0.0 X10^3/uL (0.0-0.1) 05/05/22 06:06 Absolute Nucleated RBC 0.0 /100WBC 05/05/22 06:06 Total Counted 100 05/05/22 06:06 Neutrophils % (Manual) 85 % (39-76) H 05/05/22 06:06 Lymphocytes % (Manual) 12 % (13-43) L 05/05/22 06:06 Monocytes % (Manual) 1 % (4-9) L 05/05/22 06:06 Myelocytes % 2 05/05/22 06:06 Plt Morphology Comment Normal (NORMAL) 05/05/22 06:06 RBC Morphology Normal (NORMAL) 05/05/22 06:06 Sodium 139 mmol/L (136-145) 05/05/22 06:06 Corrected Sodium 144 mmol/L (136-145) 05/05/22 06:06 Potassium 3.9 mmol/L (3.5-5.1) 05/05/22 06:06 Chloride 102 mmol/L (98-107) 05/05/22 06:06 Carbon Dioxide 28.5 mmol/L (21-32) 05/05/22 06:06 BUN 21 mg/dL (7-18) H 05/05/22 06:06 Creatinine 1.16 mg/dL (0.55-1.02) H 05/05/22 06:06 Est GFR (MDRD) Af Amer 60 (>60) 05/05/22 06:06 Est GFR (MDRD) Non-Af 50 (>60) L 05/05/22 06:06 Glucose 314 mg/dL (65-99) H 05/05/22 06:06 POC Glucose (mg/dL) 388 mg/dL (65-99) H 05/05/22 20:19 Calcium 7.6 mg/dL (8.5-10.1) L 05/05/22 06:06 Corrected Calcium 8.8 mg/dL (8.5-10.1) 05/05/22 06:06 Magnesium 2.2 mg/dL (2.0-2.9) 05/02/22 06:00 Total Bilirubin 0.20 mg/dL (0.2-1.0) 05/05/22 06:06 AST < 6 Units/L (15-37) L 05/05/22 06:06 ALT 10 Units/L (12-78) L 05/05/22 06:06 Alkaline Phosphatase 78 Units/L (46-116) 05/05/22 06:06 Total Protein 6.8 g/dL (6.4-8.2) 05/05/22 06:06 Albumin 2.5 g/dL (3.4-5.0) L 05/05/22 06:06 Globulin 4.3 g/dL (2.5-4.5) 05/05/22 06:06 Albumin/Globulin Ratio 0.6 Ratio (1.1-2.1) L 05/05/22 06:06 Resp Viral Panel (PCR) See scanned report 05/01/22 16:10 - Plan (1) Bronchopneumonia Status: Acute Plan: NORMAL SALINE AT 75 ML/HR, LEVAQUIN 750MG IV DAILY, TAMIFLU 75MG PO BID, DUONEBS QID, PULMICORT NEBS BID, TUSSIONEX 5ML PO Q12H PRN, ROBITUSSIN DM 10ML PO QID, THE POTASSIUM AND MAGNESIUM PROTOCOLS, AND HER HOME MEDICATIONS WERE RESUMED. (2) Influenza A Status: Acute (3) Hypoxia Status: Acute (4) HTN (hypertension) Status: Chronic Qualifiers: Hypertension type: primary hypertension Qualified Code(s): I10 - Essential (primary) hypertension (5) Hyperlipidemia Status: Chronic Qualifiers: Hyperlipidemia type: mixed hyperlipidemia Qualified Code(s): E78.2 - Mixed hyperlipidemia (6) COPD (chronic obstructive pulmonary disease) Status: Acute Qualifiers: COPD type: unspecified COPD Qualified Code(s): J44.9 - Chronic obstructive pulmonary disease, unspecified
[2022-05-06] MEDS: NS 1/2 1,000 ML IV 1,000 ML IV SCH ×3 (02:54→17:21)
[2022-05-06] MEDS: NEURONTIN CAP 100 MG PO SCH ×3 (05:37→21:32)
[2022-05-06] MEDS: SOLU-Medrol 40 MG VIAL IVP SCH ×3 (05:37→21:33)
[2022-05-06 06:17] LABS: BASOPHILS % (AUTO) 0.1 % (0.2-1.0); HEMATOCRIT 43.6 % (36.0-47.0); HEMOGLOBIN 14.5 g/dL (12.0-16.0); LYMPHOCYTES # (AUTO) 1.3 X10^3/uL (1.3-2.9); MEAN CORPUSCULAR HGB CONC 33.3 g/dL (33.0-35.0); MEAN CORPUSCULAR VOLUME 87.3 fL (80.0-100.0); MEAN PLATELET VOLUME 7.8 fL (7.4-11.0); MONOCYTES # (AUTO) 0.7 x10^3/uL (0.3-0.8); MONOCYTES % (AUTO) 6.6 % (0.0-13.0); NEUTROPHILS # (AUTO) 8.6 x10^3/uL (2.2-4.8); NEUTROPHILS % (AUTO) 81.3 % (42.0-75.0); RED BLOOD COUNT 4.99 X10^6/uL (3.5-5.4); WHITE BLOOD COUNT 10.6 X10^3/uL (3.6-10.0)
[2022-05-06 06:31] LABS: ALANINE AMINOTRANSFERASE 12 Units/L (12-78); ALBUMIN 2.3 g/dL (3.4-5.0); ALKALINE PHOSPHATASE 68 Units/L (46-116); ASPARTATE AMINO TRANSFERASE 7 Units/L (15-37); BLOOD UREA NITROGEN 24 mg/dL (7-18); CALCIUM 7.6 mg/dL (8.5-10.1); CARBON DIOXIDE 29.8 mmol/L (21-32); CHLORIDE 102 mmol/L (98-107); COR NA(FOR HYPERGLY) 143 mmol/L (136-145); SODIUM 137 mmol/L (136-145); TOTAL PROTEIN 6.2 g/dL (6.4-8.2); eGFR NON BLACK RACES 59 (>60)
--- NOTE | 2022-05-06 08:00 | RAD ---
HISTORYPneumonia, shortness of breathSTUDYChest AP [id number]/19/2022FINDINGSHear t size is normal. Davina are normal. Lungs appear free of acute infiltrates. No pleural effusions are identified. Bony thorax is unremarkable.IMPRESSIONLungs now clearElectronically signed by: MURIEL COLEMAN (May 06, 2022 07:58:52)
[2022-05-06] MEDS: PULMICORT NEB TX 0.5 MG NEB SCH ×2 (08:45→21:00)
[2022-05-06] MEDS: DUONEB 0.5 MG/3 MG (3 mL) NEB SCH ×4 (08:45→21:00)
[2022-05-06] MEDS: LEVAQUIN PREMIX IV 750 MG 750 MG/150 ML BAG IV SCH (09:37)
[2022-05-06] MEDS: ROBITUSSIN DM PO SCH ×4 (09:37→21:33)
[2022-05-06] MEDS: ZESTORETIC 10/ 12.5MG PO SCH (09:37)
[2022-05-06] MEDS: MOBIC TAB 15 MG PO SCH ×2 (09:37→21:32)
[2022-05-06] MEDS: PEPCID TAB 20 MG PO SCH (09:38)
[2022-05-06] MEDS: NovoLIN R (or HumuLIN R) SUBCUT PRN ×3 (13:01→21:41)
[2022-05-06] MEDS: NS 1/2 1,000 ML IV 1,000 ML IV ONE (13:03)
[2022-05-06] MEDS ORDERED: SNACK - Diabetic Appropriate PO SCH (20:00)
[2022-05-06] MEDS: LIPITOR TAB 20 MG PO SCH (21:32)
[2022-05-06] MEDS: ZANAFLEX PO SCH (21:32)
[2022-05-06] MEDS: KLONOPIN TAB 0.5 MG PO SCH (21:32)
[2022-05-07] MEDS ORDERED: NS 1/2 1,000 ML IV 1,000 ML IV ONE (00:56)
[2022-05-07] MEDS: NS 1/2 1,000 ML IV 1,000 ML IV SCH ×2 (02:04→06:13)
[2022-05-07] MEDS: NovoLIN R (or HumuLIN R) SUBCUT PRN (06:06)
[2022-05-07] MEDS: SOLU-Medrol 40 MG VIAL IVP SCH (06:06)
[2022-05-07] MEDS: NEURONTIN CAP 100 MG PO SCH (06:06)
[2022-05-07 07:12] LABS: BASOPHILS % (AUTO) 0.2 % (0.2-1.0); HEMATOCRIT 45.1 % (36.0-47.0); HEMOGLOBIN 14.9 g/dL (12.0-16.0); LYMPHOCYTES # (AUTO) 1.2 X10^3/uL (1.3-2.9); LYMPHOCYTES % (AUTO) 9.9 % (21.0-51.0); MEAN CORPUSCULAR HEMOGLOBIN 29.1 pg (27.0-34.0); MEAN CORPUSCULAR HGB CONC 32.9 g/dL (33.0-35.0); MEAN CORPUSCULAR VOLUME 88.5 fL (80.0-100.0); MEAN PLATELET VOLUME 7.3 fL (7.4-11.0); MONOCYTES # (AUTO) 1.1 x10^3/uL (0.3-0.8); MONOCYTES % (AUTO) 8.4 % (0.0-13.0); NEUTROPHILS # (AUTO) 10.2 x10^3/uL (2.2-4.8); NEUTROPHILS % (AUTO) 81.5 % (42.0-75.0); RED CELL DISTRIBUTION WIDTH 14.9 % (11.6-16.5); WHITE BLOOD COUNT 12.6 X10^3/uL (3.6-10.0)
[2022-05-07 07:32] LABS: ALANINE AMINOTRANSFERASE 12 Units/L (12-78); ALBUMIN 2.3 g/dL (3.4-5.0); ALKALINE PHOSPHATASE 72 Units/L (46-116); ASPARTATE AMINO TRANSFERASE 7 Units/L (15-37); BLOOD UREA NITROGEN 29 mg/dL (7-18); CALCIUM 7.7 mg/dL (8.5-10.1); CARBON DIOXIDE 29.1 mmol/L (21-32); CHLORIDE 102 mmol/L (98-107); COR CA(FOR HYPOALB) 9.1 mg/dL (8.5-10.1); COR NA(FOR HYPERGLY) 143 mmol/L (136-145); CREATININE 1.09 mg/dL (0.55-1.02); SODIUM 137 mmol/L (136-145); eGFR NON BLACK RACES 53 (>60)
[2022-05-07 08:01] LABS: BAND NEUTROPHILS % 1 % (0-10); METAMYELOCYTES % 1; MYELOCYTES % 1; PLATELET MORPHOLOGY COMMENT NORMAL (NORMAL)
[2022-05-07] MEDS: DUONEB 0.5 MG/3 MG (3 mL) NEB SCH (08:04)
[2022-05-07] MEDS: PULMICORT NEB TX 0.5 MG NEB SCH (08:04)
[2022-05-07] MEDS: ROBITUSSIN DM PO SCH (09:04)
[2022-05-07] MEDS: MOBIC TAB 15 MG PO SCH (09:04)
[2022-05-07] MEDS: ZESTORETIC 10/ 12.5MG PO SCH (09:04)
[2022-05-07] MEDS: LEVAQUIN PREMIX IV 750 MG 750 MG/150 ML BAG IV SCH (09:05)
[2022-05-07] MEDS: PEPCID TAB 20 MG PO SCH (09:05)
--- NOTE | 2022-05-07 10:15 | RAD ---
HISTORYFollow-up shortness of breath, bronchopneumoniaSTUDYChest AP [id number]/20/2022FINDINGSHear t size is normal. Davina are normal. Lung vazquez are clear. No pleural effusions are identified. Bony thorax is unremarkable.IMPRESSIONLungs clearElectronically signed by: MURIEL COLEMAN (May 07, 2022 10:14:28)
--- NOTE | 2022-05-07 10:18 | PCM.PROG ---
Progress Note - Progress Note for Day of Date of Exam: 05/06/22 - Subjective Subjective: IS CURRENTLY OBSERVATION STATUS FOR TREATMENT OF BRONCHOPNEUMONIA AND INFLUENZA A. TODAY, SHE IS ALERT AND ORIENTED, LYING IN BED ON MORNING ROUNDS. SHE CONTINUES WITH COMPLAINTS OF A NON-PRODUCTIVE COUGH, SHORTNESS OF BREATH, AND WHEEZING. NURSING STAFF REPORTS THAT ON ROOM AIR, PAT IENTS OXYGEN SATURATIONS DROP TO THE 80s. WHEN PLACED BACK ON NASAL CANNULA, SATURATIONS INCREASE TO THE 90s. SHE DOES HAVE A HISTORY OF COPD. ON EXAMINATION, HEART IS REGULAR IN RATE AND RHYTHM. BILATERAL LUNGS ARE NOTED WITH SCATTERED WHEEZING THROUGHOUT. ABDOMEN IS ROUND, SOFT, AND NON-TENDER WITH NORMAL BOWEL SOUNDS NOTED IN ALL QUADRANTS. NO UPPER OR LOWER EXTREMITY EDEMA NOTED. HER VITALS THIS MORNING ARE: 98.5-88-20-96%-160/81. LABS WERE OBTAINED. WBC 10.6, RBC 4.99, HGB 14.5, HCT 43.6, PLT COUNT 208, SODIUM 137, POTASSIUM 3.9, BUN 24, CREATININE 1.00, GLUCOSE 339, CALCIUM 7.6, TOTAL BILI 0.20, AST 7, ALT 12, ALK PHOS 68, TOTAL PROTEIN 6.2, ALBUMIN 2.3. RESPIRATORY VIRAL PANEL REVEALED STREPTOCOCCUS PNEUMONIAE AND RHINOVIRUS. BLOOD AND SPUTUM CULTURES ARE ALSO PENDING. CHEST XRAY OBTAINED THIS MORNING AND REVEALED: Heart size is normal. Davina are normal. Lungs appear free of acute infiltrates. No pleural effusions are identified. Bony thorax is unremarkable. SHE IS CURRENTLY REC EIVING NORMAL SALINE AT 75 ML/HR, LEVAQUIN 750MG IV DAILY, TAMIFLU 75MG PO BID, DUONEBS QID, PULMICORT NEBS BID, TUSSIONEX 5ML PO Q12H PRN, ROBITUSSIN DM 10ML PO QID, THE POTASSIUM AND MAGNESIUM PROTOCOLS, AND HER HOME MEDICATIONS WERE RESUMED. WE WILL CONTINUE WITH CURRENT PLAN OF CARE TODAY. OTHERWISE, WE PLAN TO FOLLOW-UP WITH AM LABS AND CONTINUE TO MONITOR. TIME SPENT ON CLINICAL ASSESSMENT, REVIWING LABS AND IMAGING, DECISION MAKING, AND DOCUMENTATION GREATER THAN 45 MINUTES. - Past Medical Family Social History Past Med/Fam/Surg Hx: No changes since H&P Allergies: Allergies azithromycin [From Zithromax] Allergy (Verified 05/01/22 13:21) ceftriaxone [From Rocephin] Allergy (Verified 05/01/22 12:01) shrimp Allergy (Verified 05/01/22 12:01) - Review of Systems ROS: No change since H&P - Vital Signs and I&O's Vital Signs: Temperature 98.6 F Pulse Rate [Left Radial] 82 Pulse Rate 85 Respiratory Rate 18 Blood Pressure [Left Arm] 148/80 O2 Sat by Pulse Oximetry 97 Intake and Output: Intake & Output 05/04/22 05/05/22 05/06/22 05/07/22 11:59 11:59 11:59 11:59 Intake Total 3367 / 3367 2958 / 2958 4040 / 4040 2520 / 2520 Balance 3367 / 3367 2958 / 2958 4040 / 4040 2520 / 2520 - Physical Exam Oriented: Normal Eyes: Normal Ear: Normal Nose: Normal Throat: Normal Respiratory: Generalized, Wheezes Cardiovascular: Normal : Normal Auscultation: Bowel Sounds: Normal Palpation: Normal Tenderness: Normal Skin: Normal Musculoskeletal: Normal Psychiatric: Normal Mood Description: Calm Affect: Normal Speech Pattern: Clear, Appropriate - Laboratory and Diagnostics Result Diagrams: 05/07/22 06:18 05/07/22 06:18 Labs: 05/01/22 11:53 Blood Blood Culture - Final 05/01/22 11:44 Blood Blood Culture - Final 05/01/22 13:16 Sputum - Expectorated Sputum Sputum Culture - Final 05/01/22 13:16 Sputum - Expectorated Sputum - Final Laboratory WBC 12.6 X10^3/uL (3.6-10.0) H 05/07/22 06:18 RBC 5.10 X10^6/uL (3.5-5.4) 05/07/22 06:18 Hgb 14.9 g/dL (12.0-16.0) 05/07/22 06:18 Hct 45.1 % (36.0-47.0) 05/07/22 06:18 MCV 88.5 fL (80.0-100.0) 05/07/22 06:18 MCH 29.1 pg (27.0-34.0) 05/07/22 06:18 MCHC 32.9 g/dL (33.0-35.0) L 05/07/22 06:18 RDW 14.9 % (11.6-16.5) 05/07/22 06:18 Plt Count 242 X10^3/uL (150.0-450.0) 05/07/22 06:18 Plt Count Comment Adequate (ADEQUATE) 05/07/22 06:18 MPV 7.3 fL (7.4-11.0) L 05/07/22 06:18 Neut % (Auto) 81.5 % (42.0-75.0) H 05/07/22 06:18 Lymph % (Auto) 9.9 % (21.0-51.0) L 05/07/22 06:18 [place] % (Auto) 8.4 % (0.0-13.0) 05/07/22 06:18 Eos % (Auto) 0.0 % (0.9-2.9) L 05/07/22 06:18 Baso % (Auto) 0.2 % (0.2-1.0) 05/07/22 06:18 Neut # (Auto) 10.2 x10^3/uL (2.2-4.8) H 05/07/22 06:18 Lymph # (Auto) 1.2 X10^3/uL (1.3-2.9) L 05/07/22 06:18 [place] # (Auto) 1.1 x10^3/uL (0.3-0.8) H 05/07/22 06:18 Eos # (Auto) 0.0 x10^3/uL (0.0-0.2) 05/07/22 06:18 Baso # (Auto) 0.0 X10^3/uL (0.0-0.1) 05/07/22 06:18 Absolute Nucleated RBC 0.0 /100WBC 05/07/22 06:18 Total Counted 100 05/07/22 06:18 Neutrophils % (Manual) 82 % (39-76) H 05/07/22 06:18 Band Neutrophils % 1 % (0-10) 05/07/22 06:18 Lymphocytes % (Manual) 10 % (13-43) L 05/07/22 06:18 Monocytes % (Manual) 5 % (4-9) 05/07/22 06:18 Metamyelocytes % 1 05/07/22 06:18 Myelocytes % 1 05/07/22 06:18 Plt Morphology Comment Normal (NORMAL) 05/07/22 06:18 RBC Morphology Normal (NORMAL) 05/07/22 06:18 Sodium 137 mmol/L (136-145) 05/07/22 06:18 Corrected Sodium 143 mmol/L (136-145) 05/07/22 06:18 Potassium 3.9 mmol/L (3.5-5.1) 05/07/22 06:18 Chloride 102 mmol/L (98-107) 05/07/22 06:18 Carbon Dioxide 29.1 mmol/L (21-32) 05/07/22 06:18 BUN 29 mg/dL (7-18) H 05/07/22 06:18 Creatinine 1.09 mg/dL (0.55-1.02) H 05/07/22 06:18 Est GFR (MDRD) Af Amer > 60 (>60) 05/07/22 06:18 Est GFR (MDRD) Non-Af 53 (>60) L 05/07/22 06:18 Glucose 355 mg/dL (65-99) H 05/07/22 06:18 POC Glucose (mg/dL) 309 mg/dL (65-99) H 05/07/22 05:22 Hemoglobin A1c 7.0 % 05/06/22 05:31 Calcium 7.7 mg/dL (8.5-10.1) L 05/07/22 06:18 Corrected Calcium 9.1 mg/dL (8.5-10.1) 05/07/22 06:18 Magnesium 2.2 mg/dL (2.0-2.9) 05/02/22 06:00 Total Bilirubin 0.20 mg/dL (0.2-1.0) 05/07/22 06:18 AST 7 Units/L (15-37) L 05/07/22 06:18 ALT 12 Units/L (12-78) 05/07/22 06:18 Alkaline Phosphatase 72 Units/L (46-116) 05/07/22 06:18 Total Protein 6.0 g/dL (6.4-8.2) L 05/07/22 06:18 Albumin 2.3 g/dL (3.4-5.0) L 05/07/22 06:18 Globulin 3.7 g/dL (2.5-4.5) 05/07/22 06:18 Albumin/Globulin Ratio 0.6 Ratio (1.1-2.1) L 05/07/22 06:18 Resp Viral Panel (PCR) See scanned report 05/01/22 16:10 - Plan (1) Bronchopneumonia Status: Acute Plan: NORMAL SALINE AT 75 ML/HR, LEVAQUIN 750MG IV DAILY, TAMIFLU 75MG PO BID, DUONEBS QID, PULMICORT NEBS BID, TUSSIONEX 5ML PO Q12H PRN, ROBITUSSIN DM 10ML PO QID, THE POTASSIUM AND MAGNESIUM PROTOCOLS, AND HER HOME MEDICATIONS WERE RESUMED. (2) Influenza A Status: Acute (3) Hypoxia Status: Acute (4) HTN (hypertension) Status: Chronic Qualifiers: Hypertension type: primary hypertension Qualified Code(s): I10 - Essential (primary) hypertension (5) Hyperlipidemia Status: Chronic Qualifiers: Hyperlipidemia type: mixed hyperlipidemia Qualified Code(s): E78.2 - Mixed hyperlipidemia (6) COPD (chronic obstructive pulmonary disease) Status: Acute Qualifiers: COPD type: unspecified COPD Qualified Code(s): J44.9 - Chronic obstructive pulmonary disease, unspecified
[2022-05-07 10:24] VITALS: BP 163/75
== END 2022-05-07 13:45 | disposition home or self-care (01) | DRG 195 ==
LOC: MED/SURG
PROVIDERS: ADMIT Internal Medicine; ATTEND Internal Medicine
DX: J44.9 Chronic obstructive pulmonary disease, unspecified; J18.0 Bronchopneumonia, unspecified organism; E78.2 Mixed hyperlipidemia; R06.02 Shortness of breath; Z20.822 Contact with and (suspected) exposure to COVID-19; I10 Essential (primary) hypertension; J10.08 Influenza due to other identified influenza virus with other specified pneumonia

== ENCOUNTER 2022-07-17 14:43 | Observation (INO) ==
[2022-07-17] MEDS ORDERED: TUSSIONEX PENNKINETIC SUSP PO PRN (16:31)
[2022-07-17] MEDS ORDERED: MAGIC MOUTHWASH (Orig. Formula) MT PRN (16:31)
[2022-07-17 17:31] VITALS: BMI 37.8
[2022-07-17 17:33] LABS: BASOPHILS # (AUTO) 0.1 X10^3/uL (0.0-0.1); BASOPHILS % (AUTO) 0.8 % (0.2-1.0); EOSINOPHILS # (AUTO) 0.3 x10^3/uL (0.0-0.2); EOSINOPHILS % (AUTO) 2.2 % (0.9-2.9); HEMOGLOBIN 14.5 g/dL (12.0-16.0); LYMPHOCYTES # (AUTO) 3.6 X10^3/uL (1.3-2.9); LYMPHOCYTES % (AUTO) 29.8 % (21.0-51.0); MEAN CORPUSCULAR HEMOGLOBIN 28.8 pg (27.0-34.0); MEAN CORPUSCULAR HGB CONC 32.9 g/dL (33.0-35.0); MEAN CORPUSCULAR VOLUME 87.5 fL (80.0-100.0); MEAN PLATELET VOLUME 7.1 fL (7.4-11.0); MONOCYTES # (AUTO) 1.1 x10^3/uL (0.3-0.8); MONOCYTES % (AUTO) 9.1 % (0.0-13.0); NEUTROPHILS % (AUTO) 58.1 % (42.0-75.0); RED BLOOD COUNT 5.03 X10^6/uL (3.5-5.4); RED CELL DISTRIBUTION WIDTH 15.7 % (11.6-16.5); WHITE BLOOD COUNT 12.1 X10^3/uL (3.6-10.0)
[2022-07-17] MEDS: XOPENEX 1.25 MG/3 ML NEBULE NEB SCH (17:40)
[2022-07-17 17:42] LABS: ALANINE AMINOTRANSFERASE 11 Units/L (12-78); ALBUMIN 2.8 g/dL (3.4-5.0); ALKALINE PHOSPHATASE 85 Units/L (46-116); ASPARTATE AMINO TRANSFERASE 13 Units/L (15-37); BLOOD UREA NITROGEN 19 mg/dL (7-18); CALCIUM 8.7 mg/dL (8.5-10.1); CARBON DIOXIDE 29.1 mmol/L (21-32); CHLORIDE 108 mmol/L (98-107); COR CA(FOR HYPOALB) 9.7 mg/dL (8.5-10.1); CREATININE 0.92 mg/dL (0.55-1.02); SODIUM 144 mmol/L (136-145); TOTAL PROTEIN 6.9 g/dL (6.4-8.2); eGFR NON BLACK RACES > 60 (>60)
[2022-07-17] MEDS: DECADRON JET NEB (RESP USE) NEB SCH ×2 (17:48→20:05)
[2022-07-17] MEDS ORDERED: NS 1/2 1,000 ML IV 1,000 ML IV ONE (17:58)
[2022-07-17] MEDS: VSL#3 PO SCH (18:19)
[2022-07-17] MEDS: ROBITUSSIN DM PO SCH ×2 (18:19→20:43)
[2022-07-17] MEDS: NS 1/2 1,000 ML IV 1,000 ML IV SCH (18:19)
[2022-07-17] MEDS: LEVAQUIN PREMIX IV 750 MG 750 MG/150 ML BAG IV SCH (18:20)
[2022-07-17] MEDS ORDERED: PULMICORT NEB TX 0.5 MG NEB ONE (19:16)
[2022-07-17] MEDS: PULMICORT NEB TX 0.5 MG NEB SCH (20:05)
[2022-07-17] MEDS ORDERED: VOLTAREN 1 % GEL MULTI DOSE TUBE TOP PRN (20:37)
[2022-07-17] MEDS ORDERED: PATIENT'S HOME MEDICATION (Meloxicam 7.5 mg tablet) PO SCH (21:00)
[2022-07-17] MEDS: ZANAFLEX PO SCH (21:39)
[2022-07-17] MEDS: LIPITOR TAB 20 MG PO SCH (21:39)
[2022-07-17] MEDS: NEURONTIN CAP 100 MG PO SCH (21:39)
[2022-07-17] MEDS: MOBIC TAB 15 MG PO SCH (21:41)
[2022-07-18] MEDS: XOPENEX 1.25 MG/3 ML NEBULE NEB SCH ×3 (00:10→12:55)
[2022-07-18] MEDS ORDERED: NS 1/2 1,000 ML IV 1,000 ML IV ONE ×2 (03:00→17:30)
[2022-07-18] MEDS: NEURONTIN CAP 100 MG PO SCH ×3 (05:07→21:51)
[2022-07-18] MEDS: DECADRON JET NEB (RESP USE) NEB SCH ×3 (05:30→20:10)
--- NOTE | 2022-07-18 06:02 | RAD ---
HISTORYPNEUMONIASTUDYCHEST, PA/LAT [id number]/2022FINDINGSThe cardiomediastinal silhouette is stable. No acute airspace disease. No pneumothorax or effusion. The bony thorax appears intact.IMPRESSIONNo acute cardiopulmonary disease.Electronically signed by: MURIEL COLEMAN (Jul 18, 2022 06:01:42)
[2022-07-18 06:33] LABS: BASOPHILS % (AUTO) 0.5 % (0.2-1.0); EOSINOPHILS # (AUTO) 0.2 x10^3/uL (0.0-0.2); EOSINOPHILS % (AUTO) 1.9 % (0.9-2.9); HEMATOCRIT 40.7 % (36.0-47.0); HEMOGLOBIN 13.3 g/dL (12.0-16.0); LYMPHOCYTES # (AUTO) 3.5 X10^3/uL (1.3-2.9); LYMPHOCYTES % (AUTO) 33.1 % (21.0-51.0); MEAN CORPUSCULAR HEMOGLOBIN 28.9 pg (27.0-34.0); MEAN CORPUSCULAR HGB CONC 32.7 g/dL (33.0-35.0); MEAN CORPUSCULAR VOLUME 88.3 fL (80.0-100.0); MEAN PLATELET VOLUME 7.2 fL (7.4-11.0); MONOCYTES # (AUTO) 0.9 x10^3/uL (0.3-0.8); MONOCYTES % (AUTO) 8.4 % (0.0-13.0); NEUTROPHILS % (AUTO) 56.1 % (42.0-75.0); RED BLOOD COUNT 4.61 X10^6/uL (3.5-5.4); RED CELL DISTRIBUTION WIDTH 15.4 % (11.6-16.5); WHITE BLOOD COUNT 10.7 X10^3/uL (3.6-10.0)
[2022-07-18] MEDS: NS 1/2 1,000 ML IV 1,000 ML IV SCH ×3 (06:46→20:53)
[2022-07-18 06:54] LABS: ALANINE AMINOTRANSFERASE 10 Units/L (12-78); ALBUMIN 2.4 g/dL (3.4-5.0); ALKALINE PHOSPHATASE 77 Units/L (46-116); ASPARTATE AMINO TRANSFERASE 11 Units/L (15-37); BLOOD UREA NITROGEN 15 mg/dL (7-18); CALCIUM 8.1 mg/dL (8.5-10.1); CARBON DIOXIDE 27.5 mmol/L (21-32); CHLORIDE 108 mmol/L (98-107); COR CA(FOR HYPOALB) 9.4 mg/dL (8.5-10.1); COR NA(FOR HYPERGLY) 142 mmol/L (136-145); CREATININE 0.77 mg/dL (0.55-1.02); SODIUM 142 mmol/L (136-145); eGFR NON BLACK RACES > 60 (>60)
[2022-07-18] MEDS ORDERED: PERCOCET TAB 5/325 MG PO PRN (07:14)
[2022-07-18] MEDS: PULMICORT NEB TX 0.5 MG NEB SCH ×2 (08:00→20:10)
--- NOTE | 2022-07-18 08:35 | RAD ---
HISTORYSOB; PNEUMONIASTUDYCHEST, 1 [id number]/2023.TECHNIQUEPA or AP view of the chestFINDINGSCardiac and mediastinal contours are within normal limits. There are moderate bibasilar patchy opacities. No definite pleural effusion or pneumothorax.IMPRESSIONBibasilar patchy opacities may represent pneumonia in the appropriate clinical setting. Recommend follow up imaging to document resolution after appropriate treatment.Electronically signed by: Keron Manley (Jul 18, 2022 08:35:00)
[2022-07-18] MEDS: ZESTORETIC 10/ 12.5MG PO SCH (09:17)
[2022-07-18] MEDS: ROBITUSSIN DM PO SCH ×4 (09:17→20:51)
[2022-07-18] MEDS: PROTONIX TAB 40 MG PO SCH (09:17)
[2022-07-18] MEDS: VSL#3 PO SCH (09:18)
[2022-07-18] MEDS: LOVENOX INJ 40 MG SYR SC SCH (09:18)
[2022-07-18] MEDS: MOBIC TAB 15 MG PO SCH ×2 (09:25→20:56)
[2022-07-18] MEDS: LEVAQUIN PREMIX IV 750 MG 750 MG/150 ML BAG IV SCH (20:51)
[2022-07-18] MEDS: LIPITOR TAB 20 MG PO SCH (20:51)
[2022-07-18] MEDS: ZANAFLEX PO SCH (20:51)
--- NOTE | 2022-07-18 21:42 | DR.UPDATE ---
H&P Update H&P Reviewed: Yes Any changes to H&P?: Yes Changes noted:: IS A 66 YEAR OLD PATIENT OF OURS. SHE PRESENTED TO THE HOSPITAL A DIRECT ADMISSION, OBSERVATION STATUS, FOR TREATMENT OF BRONCHOPNEUMONIA. AN AIT RESPIRATORY PANEL WAS COLLECTED AT THE OFFICE AND REPORTED GROWTH OF KLEBSIELLA PNEUMONIAE. ON 07/15/22, SHE WAS PRESCRIBED LEVAQUIN 500MG PO DAILY, ALBUTEROL INHALER, AND CODEINE-GUAIFENESIN COUGH MEDICATION. PATIENT REPORTS THAT HER SYMTPOMS OF PRODUCTIVE COUGH, SHORTNESS OF BREATH, AND WHEEZING WORSENED DESPITE TAKING THE PRESCRIBED MEDICATIONS. HER PMH INCLUDES: HTN, GERD, CVA, CHOLECYSTECTOMY, AND HYSTERECTOMY. ON ADMISSION TO THE HOSPITAL, VITALS WERE 98.0-110-22-92%-133/73. LABS WERE OBTAINED. WBC 12.1, RBC 5.03, HGB 14.5, HCT 44.0, PLT COUNT 246, SODIUM 144, POTASSIUM 3.5, CHLORIDE 108, BUN 19, CREATININE 0.92, GLUCOSE 110, CALCIUM 8.7, TOTAL BILI 0.10, AST 13, ALT 11, ALK PHOS 85, TOTAL PROTEIN 6.9, ALBUMIN 2.8. BLOOD CULTURES AND SPUTUM CULTURES WERE SET UP. A CHEST XRAY WAS OBTAINED AND REVEALED: The cardiomediastinal silhouette is stable. No acute airspace disease. No pneumothorax or effusion. The bony thorax appears intact. SHE WAS STARTED ON NORMAL SALINE AT 75 ML/HR, LEVAQUIN 750MG IV DAILY, XOPENEX NEBS Q6H, PULMICORT NEBS BID, TUSSIONEX 5ML PO Q12H PRN, ROBITUSSIN DM 10ML PO QID, LOVENOX 40MG SC DAILY, MAGIC MOUTHWASH QID, PROBIOTICS, THE POTASSIUM AND MAGNESIUM PROTOCOLS, AND HER HOME MEDICATIONS WERE RESUMED. HER HOME MEDICATIONS INCLUDE: ATORVASTATIN, VOLTAREN GEL, NEURONTIN, ZESTORETIC, MELOXICAM, PERCOCET, PROTONIX, AND TIZANIDINE. OTHERWISE, WE PLAN TO FOLLOW-UP WITH AM LABS AND CHEST XRAY AND CONTINUE TO MONITOR. TIME SPENT ON CLINICAL ASSESSMENT, REVIWING LABS AND IMAGING, DECISION MAKING, AND DOCUMENTATION GREATER THAN 75 MINUTES. Patient was examined?: Yes
[2022-07-19] MEDS: XOPENEX 1.25 MG/3 ML NEBULE NEB SCH ×3 (00:05→12:00)
[2022-07-19] MEDS: DECADRON JET NEB (RESP USE) NEB SCH ×3 (05:50→20:05)
[2022-07-19] MEDS: NEURONTIN CAP 100 MG PO SCH ×3 (06:18→21:03)
[2022-07-19 06:28] LABS: BASOPHILS # (AUTO) 0.1 X10^3/uL (0.0-0.1); BASOPHILS % (AUTO) 0.6 % (0.2-1.0); EOSINOPHILS % (AUTO) 0.4 % (0.9-2.9); HEMATOCRIT 40.3 % (36.0-47.0); HEMOGLOBIN 13.4 g/dL (12.0-16.0); LYMPHOCYTES # (AUTO) 2.4 X10^3/uL (1.3-2.9); LYMPHOCYTES % (AUTO) 24.6 % (21.0-51.0); MEAN CORPUSCULAR HEMOGLOBIN 29.1 pg (27.0-34.0); MEAN CORPUSCULAR HGB CONC 33.2 g/dL (33.0-35.0); MEAN CORPUSCULAR VOLUME 87.7 fL (80.0-100.0); MEAN PLATELET VOLUME 7.2 fL (7.4-11.0); MONOCYTES # (AUTO) 0.8 x10^3/uL (0.3-0.8); MONOCYTES % (AUTO) 8.8 % (0.0-13.0); NEUTROPHILS # (AUTO) 6.3 x10^3/uL (2.2-4.8); NEUTROPHILS % (AUTO) 65.6 % (42.0-75.0); RED CELL DISTRIBUTION WIDTH 15.3 % (11.6-16.5); WHITE BLOOD COUNT 9.6 X10^3/uL (3.6-10.0)
[2022-07-19 06:59] LABS: ALANINE AMINOTRANSFERASE 13 Units/L (12-78); ALBUMIN 2.4 g/dL (3.4-5.0); ALKALINE PHOSPHATASE 74 Units/L (46-116); ASPARTATE AMINO TRANSFERASE 9 Units/L (15-37); BLOOD UREA NITROGEN 16 mg/dL (7-18); CALCIUM 8.3 mg/dL (8.5-10.1); CARBON DIOXIDE 26.7 mmol/L (21-32); CHLORIDE 108 mmol/L (98-107); COR CA(FOR HYPOALB) 9.6 mg/dL (8.5-10.1); COR NA(FOR HYPERGLY) 140 mmol/L (136-145); CREATININE 0.75 mg/dL (0.55-1.02); SODIUM 139 mmol/L (136-145); TOTAL PROTEIN 6.1 g/dL (6.4-8.2); eGFR NON BLACK RACES > 60 (>60)
[2022-07-19] MEDS: PULMICORT NEB TX 0.5 MG NEB SCH ×2 (08:04→20:05)
[2022-07-19] MEDS: ZESTORETIC 10/ 12.5MG PO SCH (08:33)
[2022-07-19] MEDS: MOBIC TAB 15 MG PO SCH ×3 (08:33→22:20)
[2022-07-19] MEDS: VSL#3 PO SCH (08:33)
[2022-07-19] MEDS: PROTONIX TAB 40 MG PO SCH (08:34)
[2022-07-19] MEDS: LOVENOX INJ 40 MG SYR SC SCH (08:34)
[2022-07-19] MEDS: ROBITUSSIN DM PO SCH ×4 (08:34→21:02)
--- NOTE | 2022-07-19 09:38 | RAD ---
HISTORYSOBSTUDYAP chestCOMPARISONMarch 2022FINDINGSSimilar and stable heart size. Persistent bibasal interstitial infiltrates with slight progression in the right lower lobe. There is no evidence for developing pleural effusion or pneumothorax.IMPRESSIONIncreasing right basal infiltrate consistent with atelectasis and/or pneumonia.Electronically signed by: CHIQUI EUBANKS (Jul 19, 2022 09:37:51)
[2022-07-19] MEDS ORDERED: NS 1/2 1,000 ML IV 1,000 ML IV ONE ×2 (11:57→20:19)
[2022-07-19] MEDS: NS 1/2 1,000 ML IV 1,000 ML IV SCH ×2 (11:59→20:56)
[2022-07-19] MEDS: SOLU-Medrol 40 MG VIAL IVP SCH ×2 (14:11→20:56)
[2022-07-19] MEDS: LEVAQUIN PREMIX IV 750 MG 750 MG/150 ML BAG IV SCH (20:56)
[2022-07-19] MEDS: LIPITOR TAB 20 MG PO SCH (20:57)
[2022-07-19] MEDS: ZANAFLEX PO SCH (20:57)
[2022-07-20] MEDS: XOPENEX 1.25 MG/3 ML NEBULE NEB SCH ×4 (00:20→17:04)
[2022-07-20] MEDS: NS 1/2 1,000 ML IV 1,000 ML IV SCH ×3 (01:05→14:40)
[2022-07-20] MEDS: NEURONTIN CAP 100 MG PO SCH ×3 (05:28→22:01)
[2022-07-20] MEDS: DECADRON JET NEB (RESP USE) NEB SCH ×3 (05:35→21:00)
[2022-07-20 06:19] LABS: BASOPHILS % (AUTO) 0.4 % (0.2-1.0); HEMATOCRIT 43.9 % (36.0-47.0); HEMOGLOBIN 14.4 g/dL (12.0-16.0); LYMPHOCYTES # (AUTO) 1.4 X10^3/uL (1.3-2.9); LYMPHOCYTES % (AUTO) 14.5 % (21.0-51.0); MEAN CORPUSCULAR HEMOGLOBIN 28.8 pg (27.0-34.0); MEAN CORPUSCULAR HGB CONC 32.8 g/dL (33.0-35.0); MEAN CORPUSCULAR VOLUME 87.7 fL (80.0-100.0); MEAN PLATELET VOLUME 7.4 fL (7.4-11.0); MONOCYTES # (AUTO) 0.3 x10^3/uL (0.3-0.8); MONOCYTES % (AUTO) 2.6 % (0.0-13.0); NEUTROPHILS % (AUTO) 82.5 % (42.0-75.0); RED BLOOD COUNT 5.01 X10^6/uL (3.5-5.4); RED CELL DISTRIBUTION WIDTH 15.1 % (11.6-16.5); WHITE BLOOD COUNT 9.7 X10^3/uL (3.6-10.0)
[2022-07-20 06:25] LABS: ALANINE AMINOTRANSFERASE 11 Units/L (12-78); ALBUMIN 2.6 g/dL (3.4-5.0); ALKALINE PHOSPHATASE 83 Units/L (46-116); ASPARTATE AMINO TRANSFERASE 10 Units/L (15-37); BLOOD UREA NITROGEN 13 mg/dL (7-18); CHLORIDE 104 mmol/L (98-107); COR CA(FOR HYPOALB) 10.1 mg/dL (8.5-10.1); COR NA(FOR HYPERGLY) 142 mmol/L (136-145); CREATININE 0.89 mg/dL (0.55-1.02); SODIUM 138 mmol/L (136-145); TOTAL PROTEIN 6.7 g/dL (6.4-8.2); eGFR NON BLACK RACES > 60 (>60)
[2022-07-20] MEDS: PULMICORT NEB TX 0.5 MG NEB SCH ×2 (08:00→21:00)
--- NOTE | 2022-07-20 08:34 | RAD ---
HISTORYSOBSTUDYAP chestCOMPARISONMar 2022FINDINGSThere is no change in heart size. Similar extent and distribution of indistinct bilateral infiltrates. No progression or significant improvement. Pleural spaces remain well defined.IMPRESSIONNo change since 1 day prior.Electronically signed by: CHIQUI EUBANKS (Jul 20, 2022 08:32:20)
[2022-07-20] MEDS: ROBITUSSIN DM PO SCH ×4 (10:00→21:58)
[2022-07-20] MEDS: SOLU-Medrol 40 MG VIAL IVP SCH ×2 (10:00→21:58)
[2022-07-20] MEDS: ZESTORETIC 10/ 12.5MG PO SCH (10:00)
[2022-07-20] MEDS: VSL#3 PO SCH (10:00)
[2022-07-20] MEDS: LOVENOX INJ 40 MG SYR SC SCH (10:02)
[2022-07-20] MEDS: MOBIC TAB 15 MG PO SCH ×2 (10:42→22:50)
[2022-07-20] MEDS: PROTONIX TAB 40 MG PO SCH (10:43)
[2022-07-20] MEDS ORDERED: NS 1/2 1,000 ML IV 1,000 ML IV ONE (12:07)
[2022-07-20] MEDS: LIPITOR TAB 20 MG PO SCH (21:58)
[2022-07-20] MEDS: LEVAQUIN PREMIX IV 750 MG 750 MG/150 ML BAG IV SCH (21:58)
[2022-07-20] MEDS: ZANAFLEX PO SCH (21:58)
[2022-07-21] MEDS ORDERED: NS 1/2 1,000 ML IV 1,000 ML IV ONE (02:42)
[2022-07-21] MEDS: NS 1/2 1,000 ML IV 1,000 ML IV SCH ×2 (02:45→04:25)
[2022-07-21] MEDS: NEURONTIN CAP 100 MG PO SCH (05:16)
[2022-07-21 05:54] LABS: BASOPHILS % (AUTO) 0.3 % (0.2-1.0); HEMATOCRIT 43.8 % (36.0-47.0); HEMOGLOBIN 14.3 g/dL (12.0-16.0); LYMPHOCYTES # (AUTO) 1.7 X10^3/uL (1.3-2.9); LYMPHOCYTES % (AUTO) 12.5 % (21.0-51.0); MEAN CORPUSCULAR HEMOGLOBIN 28.6 pg (27.0-34.0); MEAN CORPUSCULAR HGB CONC 32.7 g/dL (33.0-35.0); MEAN CORPUSCULAR VOLUME 87.5 fL (80.0-100.0); MEAN PLATELET VOLUME 7.1 fL (7.4-11.0); MONOCYTES # (AUTO) 0.4 x10^3/uL (0.3-0.8); MONOCYTES % (AUTO) 3.2 % (0.0-13.0); NEUTROPHILS # (AUTO) 11.4 x10^3/uL (2.2-4.8); RED BLOOD COUNT 5.01 X10^6/uL (3.5-5.4); RED CELL DISTRIBUTION WIDTH 15.4 % (11.6-16.5); WHITE BLOOD COUNT 13.6 X10^3/uL (3.6-10.0)
[2022-07-21] MEDS: DECADRON JET NEB (RESP USE) NEB SCH (06:00)
[2022-07-21] MEDS: XOPENEX 1.25 MG/3 ML NEBULE NEB SCH ×2 (06:00)
[2022-07-21 06:16] LABS: ALANINE AMINOTRANSFERASE 13 Units/L (12-78); ALBUMIN 2.5 g/dL (3.4-5.0); ALKALINE PHOSPHATASE 79 Units/L (46-116); ASPARTATE AMINO TRANSFERASE 7 Units/L (15-37); BLOOD UREA NITROGEN 17 mg/dL (7-18); CALCIUM 8.7 mg/dL (8.5-10.1); CHLORIDE 102 mmol/L (98-107); COR CA(FOR HYPOALB) 9.9 mg/dL (8.5-10.1); COR NA(FOR HYPERGLY) 140 mmol/L (136-145); CREATININE 1.03 mg/dL (0.55-1.02); SODIUM 136 mmol/L (136-145); TOTAL PROTEIN 6.5 g/dL (6.4-8.2); eGFR NON BLACK RACES 57 (>60)
[2022-07-21] MEDS: PULMICORT NEB TX 0.5 MG NEB SCH (08:00)
[2022-07-21 08:14] VITALS: BP 139/63
[2022-07-21] MEDS: MOBIC TAB 15 MG PO SCH (08:34)
[2022-07-21] MEDS: SOLU-Medrol 40 MG VIAL IVP SCH (08:34)
[2022-07-21] MEDS: PROTONIX TAB 40 MG PO SCH (08:34)
[2022-07-21] MEDS: ROBITUSSIN DM PO SCH (08:34)
[2022-07-21] MEDS: LOVENOX INJ 40 MG SYR SC SCH (08:34)
[2022-07-21] MEDS: ZESTORETIC 10/ 12.5MG PO SCH (08:35)
[2022-07-21] MEDS: VSL#3 PO SCH (08:35)
--- NOTE | 2022-07-21 10:50 | RAD ---
HISTORYSOB pneumoniaSTUDYAP chestCOMPARISONMar 2022FINDINGSHeart size stable. There is slight apparent improvement in pulmonary aeration with persistent diffuse bilateral infiltrates. No new abnormality noted. The pleural spaces remain well defined.IMPRESSIONSlight apparent improvement in appearance of the lungs with no additional abnormality noted since 1 day prior.Electronically signed by: CHIQUI EUBANKS (Jul 21, 2022 10:48:58)
== END 2022-07-21 11:00 | disposition home health service (06) ==
LOC: MED/SURG
PROVIDERS: ADMIT Internal Medicine; ATTEND Internal Medicine
DX: I10 Essential (primary) hypertension; R06.02 Shortness of breath; E11.65 Type 2 diabetes mellitus with hyperglycemia; J18.0 Bronchopneumonia, unspecified organism; K21.9 Gastro-esophageal reflux disease without esophagitis; J44.1 Chronic obstructive pulmonary disease with (acute) exacerbation